=== PATIENT | female | born 1955 | race Caucasian/White ===

== ENCOUNTER 2021-02-06 06:20 | Day surgery (SDC) | payer OTHER, SELFPAY ==
[2021-02-06] VITALS (7 sets, daily range): BP systolic 102–152; BP diastolic 63–86; PULSE 58–67; RESP 10–18; TEMP 35.7–37.6; O2SAT 95–99; BMI 25.8
[2021-02-06] MEDS: LACTATED RINGERS 1,000 ML 200 ML IV (07:33)
--- NOTE | 2021-02-06 07:37 | SUR.PREOP ---
This RN viewed patient COVID test 02/03/21 with result NEG from [facility] SARS-2
--- NOTE | 2021-02-06 07:44 | P.HP_ITS ---
History of Present Illness History of Present Illness Date Patient Seen: 02/06/21 Time Patient Seen: 07:44 Chief complaint: [facility] [place] Narrative: The patient presents for colorectal sreening. She had a previous colonoscopy 13 years ago normal. No personal or family history of colon cancer. On further history denies any recent gastrointestinal symptoms. No nausea, vomiting, abdominal pain, loss of appetite, unexplained weight loss, change in bowel habits, diarrhea, constipation, melena, hematochezia, or bright red blood per rectum. Patient History Surgical History (Updated 02/06/21 @ 07:45 by Talat Roy MD) H/O: hysterectomy Family & Social History Social History: household members spouse Tobacco & Substance use: Smoking Status Never smoker alcohol intake current alcohol intake frequency holiday/special occasion Substance Use Type does not use Meds Home Medications and Allergies Home Medications Medication Instructions Recorded Confirmed Type sodium,potassium,mag sulfates 17.5 177 ml PO DAILY #354 ml 01/03/21 02/06/21 Rx gram-3.13 gram-1.6 gram oral soln calcium carb,cit 300 mg-magnesium 1 tab PO DAILY 02/06/21 02/06/21 History cit,ox 150 mg-vit D3 400 unit tablet (Fer-Mag Complex) cyanocobalamin (vitamin B-12) 500 500 mcg PO DAILY 02/06/21 02/06/21 History mcg tablet (B-12 DOTS) desonide 0.05 % topical cream 1 applic TOPICAL QID 02/06/21 02/06/21 History Allergies Allergy/AdvReac Type Severity Reaction Status Date / Time acetaminophen [From Percocet] Allergy Hives Verified 02/06/21 07:10 oxycodone [From Percocet] Allergy Hives Verified 02/06/21 07:10 Penicillins Allergy Hives Verified 02/06/21 07:10 Exam Vital Signs (past 8 hours): - 02/06/21 07:34 Temperature 99.6 F Pulse Rate 67 Respiratory Rate 16 Blood Pressure 152/86 H Pulse Oximetry 99 Oxygen Delivery Method Room Air Narrative Exam Narrative: GENERAL-well developed adult woman, no acute distress HEENT-no scleral icterus, hearing intact NECK-no JVD, trachea midline CVS- regular rate, no peripheral edema RESP-unlabored respiratory effort, no audible wheezing GI-soft, nontender nondistended MSK-no cyanosis or clubbing, extremities without deformity SKIN-warm, dry NEURO-alert and oriented, no focal deficits PYSCH-Appropriate mood and affect Assessment & Plan Assessment & Plan narrative: The patient requires colorectal screening and colonoscopy is recommended. Technical details were discussed. Risks, benefits, alternatives explained. Risks including but not limited to myocardial infarction, aspiration, bleeding, pain, missed lesion, incomplete examination, need for further radiographic studies, colonic perforation, and need for major abdominal surgery were discussed. All questions were answered to their satisfaction, and they are in agreement with this plan.
[2021-02-06] MEDS: MIDAZOLAM 5 MG/5 ML VIAL IV (07:57)
[2021-02-06] MEDS: fentaNYL 250 MCG/5 ML INJ IV (07:57)
--- NOTE | 2021-02-06 08:16 | P.OP.ENDO_ITS ---
Operative Date/Time/Diagnoses Date of procedure: 02/06/21 Time of procedure: 08:16 Pre-op diagnosis: Screening colonoscopy Post-op diagnosis: same Procedure & Clinicians Study performed: Sigmoidoscopy, aborted colonoscopy Same procedure as scheduled: No Indications: Screening Surgeon: Talat Roy Procedure Notes Procedure in detail: Medications: Conscious sedation using 6mg IV midazolam and 200mcg IV of fentanyl The history and physical was performed/updated and the patient is ASA class is 2. The procedure was discussed in detail with the patient. Potential risks complications including infection, bleeding, missed diagnosis, perforation, need for surgery, and were explained. Their questions were answered and informed consent was obtained. Patient was brought to the procedure room and placed standard monitoring equipme nt. The patient's vital signs were monitored continuously throughout the entire procedure. Prior to starting time-out was performed. The patient was placed in the left lateral recumbent position. Procedural sedation was administered. Examination began with a thorough inspection of the perianal area there was no evidence of fissures, fistulae, external hemorrhoids or cutaneous malignancy. The colonoscopy scope was then placed into the anal canal and was advanced forward. The transverse colon was reached however she had repeated episodes of bradycardia into the high 30s blood pressure remained normotensive. Procedure was aborted secondary to bradycardia. The scope was then slowly withdrawn examining colon thoroughly in all directions, irrigating it of any residual stool. FINDINGS 1. No masses or polyps to the level of the transverse colon 2. Sigmoid diverticulosis 3. Grade 1 internal hemorrhoids The patient tolerated the procedure well. They will be discharged once criteria are met. The prep was of good/excellent quality. The withdrawl time was 6 minutes. The sedation time was 30 minutes. Specimen(s): none sent Complications: none Impression: Normal sigmoidoscopy Post-procedure Recommendations: Colonscopy in 5 years Disposition: same day surgery
== END 2021-02-06 09:27 | disposition home or self-care (01) ==
PROVIDERS: PCP Physician Assistant Medical; Referring Provider Surgery; Visit Provider Surgery
PROC: 0DJD8ZZ Inspection of Lower Intestinal Tract, Via Natural or Artificial Opening Endoscopic (ICD-10-PCS; CPT 45378; principal; 2021-02-06 07:45)
DX: Z12.11 Encounter for screening for malignant neoplasm of colon (principal); K57.30 Diverticulosis of large intestine without perforation or abscess without bleeding; K64.0 First degree hemorrhoids; R00.1 Bradycardia, unspecified; Z53.09 Procedure and treatment not carried out because of other contraindication
CPT/HCPCS: 45378; 99152; 99153; J2250; J3010